=== PATIENT | male | born 1940 | race Caucasian/White ===

== ENCOUNTER 2018-05-22 19:32 | Emergency (ER) | payer OTHER, MEDICAID ==
[~2018-05-22] VITALS: Ht 160 cm; Wt 70.5 kg
[2018-05-22 19:43] VITALS: BP 136/74
--- NOTE | 2018-05-22 19:46 | NUR ---
PT RETURNED TO LOBBY IN STABLE CONDITION
--- NOTE | 2018-05-22 20:30 | NUR ---
78/ M BIB SELF, C/O LEFT ARM AND HAND PAIN THAT RADIATES TO HIS SHOULDER, NECK, AND HEAD X3 WEEKS. PAIN BURNING/ DULL CONSTANT PAIN. PATIENT STATES HE AWOKE TODAY WITH WHAT APPEARS LIKE A SMALL MASS NEXT TO THUMB, PATIENT HAS LIMITED RANGE OF MOTION. PATIENT DENIES NUMBNESS OR TINGLING, SOB, CP, BLURRY VISION, OR INJURY TO ARM. PATIENT HAS A HISTORY OF STROKE 89. PATIENT AOX4, STEADY GAIT, CLEAR SPEECH, SAFETY PRECAUTIONS IN PLACE.
--- NOTE | 2018-05-22 20:37 | NUR ---
Pt report given to ALEAH GAYTAN. Transfer of care at this time.
--- NOTE | 2018-05-22 20:40 | NUR ---
ASSUMED CARE OF PT AT THIS TIME. PT AWAITS MD DISPOSITION. JUAN JOSÉ. CARMELITA. WILL CONTINUE TO MONITOR.
[2018-05-22] MEDS: KETOROLAC 30 MG/ML VIAL IM ONE (21:08)
[2018-05-22 21:19] VITALS: BP 138/71
== END 2018-05-22 21:19 | disposition home or self-care (01) ==
LOC: MED 19:32
DX: M19.042 Primary osteoarthritis, left hand (principal); E11.9 Type 2 diabetes mellitus without complications; E07.9 Disorder of thyroid, unspecified; Z86.73 Personal history of transient ischemic attack (TIA), and cerebral infarction without residual deficits; Z90.49 Acquired absence of other specified parts of digestive tract; Z98.890 Other specified postprocedural states
CPT/HCPCS: 73140; 82948; 96372; 99283; J1885